=== PATIENT | male | born 1955 ===

== ENCOUNTER 2017-11-13 09:34 | Emergency (ER) | payer MEDICARE ==
[2017-11-13 09:51] VITALS: O2SAT 97
--- NOTE | 2017-11-13 10:14 | RAD ---
PROCEDURE: Radiographs of the neck (soft tissue). HISTORY: THROAT PAIN, R/O FOREIGN BODY COMPARISON: None. TECHNIQUE: Frontal and Lateral Radiographs of the neck, optimized for soft tissue visualization. FINDINGS: SOFT TISSUES: Unremarkable. No radiopaque foreign body seen. CERVICAL SPINE: Minimal cervical spondylosis anterior -C5-6 level. Posterior nuchal soft tissue ossification OTHER FINDINGS: None. IMPRESSION: No radiopaque foreign body. Cervical spine spondylosis
--- NOTE | 2017-11-13 10:44 | C.PDOC ---
History Of Present Illness 62 y/o male presents to the ED brought by ambulance from c/o throat pain. The patient states while taking his medication this morning he like like one was stuck and he could cough it back up. The patient denies SOB, and chest pain. Time Seen by Provider: 11/13/17 09:39 Chief Complaint (Nursing): ENT Problem History Per: EMS Onset/Duration Of Symptoms: Hrs Current Symptoms Are (Timing): Still Present Quality (Mouth/Throat): Other (could not cough up the medication ) Past Medical History Reviewed: Historical Data, Nursing Documentation, Vital Signs Vital Signs: Last Vital Signs Temp 98.0 F 11/13/17 10:50 Pulse 62 11/13/17 10:50 Resp 16 11/13/17 10:50 BP 116/70 11/13/17 10:50 Pulse Ox 97 11/13/17 11:44 - Medical History PMH: Depression (Major) Surgical History: No Surg Hx Family History: States: No Known Family Hx - Social History Hx Alcohol Use: No Hx Substance Use: No - Immunization History Hx Tetanus Toxoid Vaccination: No Hx Influenza Vaccination: No Review Of Systems Except As Marked, All Systems Reviewed And Found Negative. Constitutional: Negative for: Fever ENT: Positive for: Throat Pain Cardiovascular: Negative for: Chest Pain Respiratory: Negative for: Cough, Shortness of Breath Gastrointestinal: Negative for: Nausea Musculoskeletal: Negative for: Neck Pain Physical Exam - Physical Exam Appears: Non-toxic, No Acute Distress Skin: Warm, Dry Head: Atraumatic, Normacephalic Eye(s): bilateral: Normal Inspection Oral Mucosa: Moist Throat: No Erythema, Other (no swelling, foreign body ,and no neck lymphadenopathy) Neck: Supple Chest: Symmetrical, No Tenderness Cardiovascular: Rhythm Regular Respiratory: Normal Breath Sounds, No Rales, No Rhonchi Gastrointestinal/Abdominal: Soft, No Tenderness, No Guarding, No Rebound Back: Normal Inspection Extremity: Capillary Refill (2<sec.) Neurological/Psych: Oriented x3, Normal Speech, Normal Cognition Gait: Steady ED Course And Treatment O2 Sat by Pulse Oximetry: 97 (RA) Progress Note: Upon reassessment, the patient is aferbile , comfortable, and no longer feels any throat pain. The patient is advised to have a 1-2 day follow up with his PCP for further evaluation. Medical Decision Making Medical Decision Making: IMPRESSION: No radiopaque foreign body. Cervical spine spondylosis Disposition Counseled Patient/Family Regarding: Studies Performed, Diagnosis, Need For Followup, Rx Given - Disposition Referrals: [facility] [Outside] Disposition: HOME/ ROUTINE Disposition Time: 10:35 Condition: STABLE Additional Instructions: IF SYMPTOMS PERSIST, FOLLOW UP WITH ENT WITHIN 1 WEEK USE SPRAY INSTRUCTED RETURN TO ER IF SYMPTOMS WORSEN Prescriptions: Phenol/Glycerin [Chloraseptic Max [place]] 1 spray MM Q6 PRN #1 spray PRN Reason: THROAT PAIN Forms: [facility] (Irish), General Discharge Instructions Print Language: GREENLANDIC - POA Present On Arrival: None - Clinical Impression Clinical Impression: Foreign body sensation in throat, Throat pain - Scribe Statement Trini Rosas
[2017-11-13 10:54] VITALS: BP 116/70; PULSE 62; RESP 16
[2017-11-13 10:55] VITALS: TEMP 98
== END 2017-11-13 11:03 | disposition home or self-care (01) ==
LOC: C.ER 09:34
DX: R09.89 Other specified symptoms and signs involving the circulatory and respiratory systems (principal); R07.0 Pain in throat